=== PATIENT | male | born 1960 | race Caucasian/White ===

== ENCOUNTER 2018-01-31 01:58 | Emergency (ER) | payer OTHER ==
[2018-01-31 02:55] LABS: ABG BASE EXCESS 0.1 (-2.0-2.0); ABG HCO3 25.1 MEQ/L (22.0-26.0); ABG O2 SATURATION 95.8 % (95.0-99.0); ABG PARTIAL PRESSURE CO2 42.1 mmHg (35.0-45.0); ABG PARTIAL PRESSURE O2 81.1 mmHg (75.0-100.0); ABG STANDARD HCO3 24.5 MEQ/L (22.0-26.0); ABG TOTAL CO2 26.4 MEQ/L (22.0-29.0); ABG pH (ARTERIAL) 7.393 UNITS (7.350-7.450); CPK CREATINE PHOSPHOKINASE 66 U/L (39-308); MB/CK RELATIVE INDEX 2.88 (< OR =4); TROPONIN I < 0.02 NG/ML (< 0.10)
[2018-01-31] MEDS ORDERED: ACETAMINOPHEN 325 MG TAB PO (03:15)
== END 2018-01-31 03:32 | disposition home or self-care (01) ==
LOC: M ED 01:58
DX: R07.89 Other chest pain (principal); R20.2 Paresthesia of skin; F17.200 Nicotine dependence, unspecified, uncomplicated
CPT/HCPCS: 71045